=== PATIENT | female | born 1985 | race Caucasian/White ===

== ENCOUNTER → 2022-03-28 | Outpatient (CLI) | payer OTHER | END | disposition home or self-care (01) | LOC: US 15:00 | PROVIDERS: ATTEND Family Medicine | DX: Z30.431 Encounter for routine checking of intrauterine contraceptive device (principal); N93.9 Abnormal uterine and vaginal bleeding, unspecified ==

== ENCOUNTER → 2022-05-17 | Outpatient (CLI) | payer OTHER ==
[2022-05-17 12:12] LABS: BASO # 0.1 10*3/uL (0.0-0.1); BASO % 0.8 % (0.0-1.0); EOS # 0.5 10*3/uL (0.0-0.4); EOS % 7.1 % (1.0-4.0); HEMATOCRIT 43.5 % (37.0-47.0); LYMPH # 1.9 10*3/uL (1.3-4.4); LYMPH % 29.9 % (27.0-41.0); MEAN CELL VOLUME 89.3 fl (81.0-99.0); MEAN CORPUSCULAR HGB 30.4 pg (27.0-31.0); MEAN PLATELET VOLUME 10.3 fl (9.6-12.3); MONO # 0.4 10*3/uL (0.1-1.0); MONO % 6.5 % (3.0-9.0); NEUT # 3.5 10*3/uL (2.3-7.9); NEUT % 55.5 % (47.0-73.0); PLATELET COUNT AUTOMATED 274 10*3/uL (130-400); RED BLOOD COUNT 4.87 10*6/uL (4.10-5.10); RED CELL DISTRI WIDTH 12.1 % (0-14.5); WHITE BLOOD COUNT 6.3 10*3/uL (4.8-10.8)
[2022-05-17 12:31] LABS: ALKALINE PHOSPHATASE 73 U/L (46-116); BUN 9 mg/dl (9-23); CHLORIDE 106 mmol/L (98-107); CHOLESTEROL 136 mg/dL (<200); LDL CHOLESTEROL 75 mg/dL (9-159); POTASSIUM 3.6 mmol/L (3.4-5.1); SGPT/ALT 22 U/L (10-49); TOTAL PROTEIN 7.9 gm/dL (6.0-8.0); TRIGLYCERIDES 85 mg/dl (<150)
== END | disposition home or self-care (01) ==
LOC: LAB 11:38
PROVIDERS: ATTEND Student in an Organized Health Care Education/Training Program
DX: Z13.220 Encounter for screening for lipoid disorders (principal); R73.9 Hyperglycemia, unspecified; R53.83 Other fatigue

== ENCOUNTER → 2022-05-30 | Outpatient (CLI) | payer OTHER ==
[2022-05-30 11:12] LABS: BASO # 0.1 10*3/uL (0.0-0.1); BASO % 0.6 % (0.0-1.0); EOS # 0.4 10*3/uL (0.0-0.4); EOS % 4.9 % (1.0-4.0); HEMATOCRIT 44.2 % (37.0-47.0); LYMPH # 1.6 10*3/uL (1.3-4.4); LYMPH % 17.6 % (27.0-41.0); MEAN CELL VOLUME 91.7 fl (81.0-99.0); MEAN CORPUSCULAR HGB 30.5 pg (27.0-31.0); MEAN CORPUSCULAR HGB CONC 33.3 g/dl (33.0-37.0); MEAN PLATELET VOLUME 10.1 fl (9.6-12.3); MONO # 0.5 10*3/uL (0.1-1.0); MONO % 5.7 % (3.0-9.0); NEUT # 6.3 10*3/uL (2.3-7.9); PLATELET COUNT AUTOMATED 248 10*3/uL (130-400); RED BLOOD COUNT 4.82 10*6/uL (4.10-5.10); RED CELL DISTRI WIDTH 12.8 % (0-14.5); WHITE BLOOD COUNT 8.9 10*3/uL (4.8-10.8)
[2022-05-30 11:49] LABS: ALKALINE PHOSPHATASE 68 U/L (46-116); BUN 17 mg/dl (9-23); CHLORIDE 108 mmol/L (98-107); POTASSIUM 4.2 mmol/L (3.4-5.1); SGPT/ALT 18 U/L (10-49); TOTAL PROTEIN 7.8 gm/dL (6.0-8.0)
== END | disposition home or self-care (01) ==
LOC: LAB 10:22
PROVIDERS: Student in an Organized Health Care Education/Training Program; ATTEND Family Medicine
DX: M47.816 Spondylosis without myelopathy or radiculopathy, lumbar region (principal); M41.86 Other forms of scoliosis, lumbar region; R53.83 Other fatigue; R80.9 Proteinuria, unspecified